=== PATIENT | female | born 1985 | race African-American/Black ===

== ENCOUNTER 2017-09-21 19:20 | Emergency (ER) | payer OTHER, SELFPAY ==
[2017-09-21 19:41] LABS: Bilirubin Negative (Negative); Blood, Urine Negative (Negative); Glucose, Urine (Dipstick) Negative (Negative); Ketone, Urine Negative (Negative); Nitrite Negative (Negative); Protein, Urine (Dipstick) Negative (Neg-Trace)
[2017-09-21] MEDS ORDERED: Ondansetron ODT 4 MG TAB ONE (20:32)
[2017-09-21 20:42] LABS: #Eosinphils 0.1 thou/uL (0.0-0.7); #Lymphocytes 2.1 thou/uL (1.20-3.40); #Monocytes 0.7 thou/uL (0.11-0.59); #Neutrophils 3.1 thou/uL (1.40-6.50); %Basophils 0.7 % (0.0-1.0); %Eosinophils 1.1 % (0.0-10.0); %Lymphocytes 35.8 % (21.0-51.0); %Monocytes 11.2 % (0.0-10.0); Hematocrit 35.7 % (36.0-47.0); Mean Platelet Volume 7.2 fL (7.4-10.4); Red Blood Cell (RBC) Count 3.98 mill/uL (4.20-5.40)
[2017-09-21 21:00] LABS: ALT (SGPT) 21 U/L (8-55); AST (SGOT) 21 U/L (5-34); Alkaline Phosphatase 49 U/L (40-150); Anion Gap 10 mmol/L (10-20); BUN (Urea Nitrogen) 11 mg/dL (7.0-18.7); Bilirubin, Total 0.4 mg/dL (0.2-1.2); Calc. Creatinine Clearance 0 mL/min (70-130); Calcium 8.8 mg/dL (7.8-10.44); Carbon Dioxide 23 mmol/L (22-29); Chloride 103 mmol/L (98-107); Estimated GFR-MDRD Greater than 90; Globulin 3.7 g/dL (2.4-3.5); Lipase 22 U/L (8-78); Protein, Total 7.3 g/dL (6.0-8.3)
--- NOTE | 2017-09-21 22:19 | ULT ---
HISTORY: Cramps. Evaluate first trimester . Multiple longitudinal and transverse images of the pelvis is obtained using a multihertz curvilinear transabdominal as well as multihertz endovaginal transducers. Real time, color flow and spectral wa veform doppler analysis demonstrates the gestational sac to measure 2.7 cm giving a gestational age of 7 weeks, 5 days. A pole is seen. [place]-rump length measuring 4 mm giving a gestational age of 6 weeks, 1 day. This gives overall estimated gestational age of 7 weeks, 0 days with an estimated date of delivery of 05/10/18. Cardiac activity is not confirmed. Correlate with followup sonography and serum HCG levels. The uter us is retroflexed. The uterus has three dimensional measurements of 10.5 x 6.8 x 7.2 cm. Both ovarie s visualized and demonstrate good blood flow. Right ovary measures 2.6 x 1.6 x 1.8 cm while the left ovary measures 2.9 x 3.8 x 3.2 cm. A left ovarian cyst is also present measuring 2.4 x 2.5 x 1.8 cm . IMPRESSION: Gestational sac and pole seen. The cardiac activity was not documented. I could not rule out t he possibility of demise. Correlate with followup images and serum HCG levels. POS: [facility]
== END 2017-09-21 21:57 | disposition home or self-care (01) ==
LOC: ERS 19:20
DX: O20.0 Threatened abortion (principal); Z3A.09 9 weeks gestation of pregnancy
CPT/HCPCS: 36415; 76856; 80053; 81003; 83690; 84702; 85025; 87480; 87491; 87510; 87591; 87660; Q0162